=== PATIENT | female | born 1960 ===

== ENCOUNTER → 2019-10-02 08:09 | Outpatient (CLI) | payer OTHER | END | disposition home or self-care (01) | LOC: LAB 07:36 | DX: I10 Essential (primary) hypertension (principal); E11.9 Type 2 diabetes mellitus without complications; E03.8 Other specified hypothyroidism; E78.2 Mixed hyperlipidemia; M81.0 Age-related osteoporosis without current pathological fracture; E55.9 Vitamin D deficiency, unspecified; R10.84 Generalized abdominal pain ==

== ENCOUNTER 2019-10-02 09:08 | Outpatient (CLI) | payer OTHER | END 2019-10-02 09:13 | disposition home or self-care (01) | LOC: MAMO-SONO 09:08 | DX: Z12.31 Encounter for screening mammogram for malignant neoplasm of breast (principal); Z87.898 Personal history of other specified conditions; N63.11 Unspecified lump in the right breast, upper outer quadrant; E03.8 Other specified hypothyroidism; R10.13 Epigastric pain; R10.32 Left lower quadrant pain ==

== ENCOUNTER 2020-01-21 12:23 | Outpatient (CLI) | payer OTHER | END 2020-01-21 12:36 | disposition home or self-care (01) | LOC: LAB 12:23 | DX: J11.1 Influenza due to unidentified influenza virus with other respiratory manifestations (principal); D64.0 Hereditary sideroblastic anemia ==

== ENCOUNTER 2024-08-16 10:36 | Outpatient (CLI) | payer OTHER | END 2024-08-16 10:44 | disposition home or self-care (01) | LOC: SONOGRAMA 10:36 | PROVIDERS: ATTEND Internal Medicine Cardiovascular Disease | DX: M12.9 Arthropathy, unspecified (principal) ==